=== PATIENT | female | born 1945 | race Caucasian/White ===

== ENCOUNTER 2017-09-07 09:15 | Emergency (ER) | payer BC ==
[~2017-09-07] VITALS: Ht 157.5 cm; Wt 49.9 kg
--- NOTE | 2017-09-07 10:16 | NUR ---
Patient discharged to home in stable conditon. Written and verbal after care instructions given to patient with prescription for amoxicillin. Patient verbalizes understanding of instructions.
== END 2017-09-07 10:17 | disposition home or self-care (01) ==
LOC: ER 09:15
DX: J06.9 Acute upper respiratory infection, unspecified (principal); Z88.5 Allergy status to narcotic agent
CPT/HCPCS: 36415; 86403; 87070; 87400; A4663

== ENCOUNTER 2018-06-26 17:34 | Emergency (ER) | payer BC, MEDICARE, OTHER ==
[~2018-06-26] VITALS: Ht 157.5 cm; Wt 48.5 kg
--- NOTE | 2018-06-26 17:52 | NUR ---
Patient discharged to home in stable conditon. Written and verbal after care instructions given. Patient verbalizes understanding of instructions.
== END 2018-06-26 18:02 | disposition home or self-care (01) ==
LOC: ER 17:36
DX: J40 Bronchitis, not specified as acute or chronic (principal); Z88.5 Allergy status to narcotic agent
CPT/HCPCS: A4663